=== PATIENT | male | born 2000 | race Caucasian/White ===

== ENCOUNTER 2020-03-17 13:49 | Outpatient (REF) | payer MEDICAID, SELFPAY | END 2020-03-17 13:50 | disposition home or self-care (01) | LOC: HO.LAB 13:49 | PROVIDERS: Visit Provider Internal Medicine | DX: Z20.828 Contact with and (suspected) exposure to other viral communicable diseases (principal) | CPT/HCPCS: C9803; U0003 ==

== ENCOUNTER 2021-04-23 17:47 | Emergency (ER) | payer MEDICAID, SELFPAY ==
--- NOTE | ~2021-04-23 | CT_ITS ---
EXAMINATION: CT ABDOMEN AND PELVIS WITH CONTRAST CLINICAL INFORMATION: Fever, vomiting and diarrhea. COMPARISON: None. TECHNIQUE: Multidetector volumetric images were obtained from the superior aspect of the liver through the pubic symphysis following administration 85 mL of Omnipaque 350 intravenous contrast. Sagittal and coronal reformatted images were obtained on the technologist's workstation. Oral contrast: No This CT examination was performed using dose optimization techniques as appropriate, variously including the following: *Automated exposure control *Adjustment of mA and/or kV according to patient size (this includes techniques or standardized protocols for targeted exams where dose is matched to indication/reason for exam; i.e. extremities or head) *Use of iterative reconstruction technique DLP: 414 mGy-cm FINDINGS: LUNG BASES: The visualized lung bases are unremarkable. LIVER, GALLBLADDER, AND BILIARY TREE: The liver is normal in size, shape, and attenuation. No focal hepatic lesion or biliary ductal dilatation is present. The gallbladder is unremarkable with no evidence of radiopaque gallstones, gallbladder wall thickening, or obvious pericholecystic inflammatory changes. PANCREAS: Unremarkable. SPLEEN: Unremarkable. ADRENAL GLANDS: Unremarkable. KIDNEYS AND URETERS: The kidneys are normal in size, shape, and attenuation. No hydronephrosis, hydroureter, or calculi seen. No perinephric stranding. BLADDER: Unremarkable. GASTROINTESTINAL TRACT: The stomach and the small bowel are nondilated. There are however a few prominent fluid-filled loops of small bowel in the lower abdomen with associated stranding of the root of the mesentery (3:51) and prominent mesenteric lymph nodes, raising the possibility of gastroenteritis. No pericolic inflammatory changes or bowel obstruction. Normal appendix. ABDOMINAL WALL: No significant hernia is appreciated. LYMPH NODES: As above. There is haziness of the root of the mesentery (6:39) with multiple prominent associated lymph nodes. VASCULAR: Unremarkable. PELVIC VISCERA: Unremarkable. OSSEOUS STRUCTURES: No acute or aggressive osseous abnormalities. CT/CT abdomen pelvis w con IMPRESSION: Fluid-filled loops of small bowel with associated mesenteric vasculature engorgement, haziness and prominent mesenteric lymph nodes raising the possibility of an infectious or inflammatory process of the small bowel such as gastroenteritis. The haziness of the mesentery is inferior to the pancreas and although acute edematous pancreatitis is felt less likely, correlation with lipase levels should be obtained. No bowel obstruction.
[2021-04-23 19:36] VITALS: BP 129/75; PULSE 116; RESP 20; TEMP 37.6; O2SAT 97; BMI 24.7
[2021-04-23 19:51] LABS: MANUAL DIFF FLAG NO
[2021-04-23 19:52] LABS: Basophils Percent Auto 0.2 % (0-2); Eosinophils Absolute Auto 0.1 X10*3/uL (0.0-0.4); Eosinophils Percent Auto 0.4 % (0-4); Hematocrit 46.4 % (42.0-52.0); Hemoglobin 15.7 g/dl (14.0-18.0); Imm Gran Abs Auto 0.08 X10*3/uL (0.00-0.03); Imm Gran Pct Auto 0.6 % (0.0-0.4); Lymphocytes Absolute Auto 0.9 X10*3/uL (1.2-4.9); Mean Corpuscular HGB Conc 33.8 g/dl (31.0-36.0); Mean Corpuscular Hemoglobin 29.9 pg (27.0-33.0); Mean Corpuscular Volume 88.4 fL (80.0-98.0); Mean Platelet Volume 8.7 fL (9.4-12.4); Monocytes Absolute Auto 0.9 X10*3/uL (0.1-1.2); Monocytes Percent Auto 6.1 % (2-11); Neutrophils Absolute Auto 12.6 x10*3/uL (2.0-8.3); Neutrophils Percent Auto 86.7 % (45-73); Platelet Count 254 X10*3/uL (160-400); Red Blood Count 5.25 X10*6/uL (4.60-5.80); Red Cell Distribution Width 12.6 % (11.0-16.0); White Blood Count 14.5 X10*3/uL (4.8-10.8)
[2021-04-23 20:09] LABS: COVID-19 Test Negative (Negative)
[2021-04-23 20:10] LABS: Alanine Aminotransferase 68 U/L (0-40); Albumin Level 4.7 g/dL (3.5-5.0); Alkaline Phosphatase 66 U/L (39-117); Anion Gap 13 (12-20); Aspartate Amino Transferase 25 U/L (5-37); Bilirubin Direct 0.3 mg/dL (0.0-0.5); Bilirubin Total 0.9 mg/dL (0.0-1.0); Blood Urea Nitrogen 10 mg/dL (9-16); Carbon Dioxide 24 mmol/L (22-29); Chloride 104 mmol/L (96-108); Creatinine Clr Calc Pharmacy 146.1; Estimated Glomerular Filt Rate > 60; Glucose Random 105 mg/dL (60-115); Lipase 31 U/L (8-78); Sodium 137 mmol/L (135-145); Total Protein 7.7 g/dL (6.5-8.0)
[2021-04-23 23:17] VITALS: BP 117/61; PULSE 95; RESP 16; TEMP 38.4; O2SAT 98
[2021-04-23] MEDS: Acetaminophen 325 MG TABLET 975 MG PO (23:20)
--- NOTE | 2021-04-23 23:46 | ED_ITS ---
HPI - Nausea/Vomiting/Diarrhea General Chief complaint: Nausea/Vomiting/Diarrhea Stated complaint: abd pain nausea dizzy Time Seen by Provider: 04/23/21 23:09 Source: patient Mode of arrival: ambulatory Limitations: no limitations History of Present Illness HPI Narrative: 20-year-old male presents for diarrhea, nausea, and vomiting this started midnight last night. Patient had multiple episodes of diarrhea, states he had more than 10 episodes of diarrhea. He was nauseous, but could drink some water. He vomited 3 times today. He had epigastric pain with the vomiting. No dark, tarry, or bloody stool. No abdominal pain now Patient states he ate a Lava cake from [employer] that smelled bad yesterday. He has not had any recent antibiotic use, no bad Yates, no travel or recent camping. does not drink alcohol, but does smoke marijuana daily. No belly surgeries. MD elicited complaint: vomiting and diarrhea Onset (ago): day(s) (1) Description of vomiting: food contents Description of diarrhea: loose Associated nausea: Yes Associated abdominal pain: No Related Data Previous Rx's Medication Instructions Recorded ondansetron 4 mg disintegrating 4 mg PO Q8H #9 tab 04/23/21 tablet Allergies Allergy/AdvReac Type Severity Reaction Status Date / Time No Known Allergies Allergy Verified 04/23/21 19:42 Review of Systems Constitutional: Constitutional: Denies body ache(s), Denies chills, Denies fatigue, Denies fever(s), Denies headache(s), Denies malaise and Denies weakness Eyes: Eyes: Denies diplopia ENT: Denies vertigo, Denies dizziness, Denies otalgia, Denies headache(s), Denies mouth pain, Denies post nasal drip, Denies sinus pain, Denies sinus pressure, Denies sore throat and Denies throat swelling Cardiovascular: Cardiovascular: Denies chest pain, Denies syncope, Denies leg edema, Denies lightheadedness, Denies Loss of Consciousness, Denies palpitations and Denies dyspnea Respiratory: Respiratory: Denies chest congestion, Denies cough and Denies dyspnea Gastrointestinal: Gastrointestinal: Denies abdominal pain, Denies melena, Denies hematochezia, Denies tenesmus, Denies change in stool character, Denies coffee ground emesis, Reports diarrhea, Reports nausea, Reports vomiting and Denies hematemesis Genitourinary: Genitourinary: Reports no additional male genitourinary complaints Musculoskeletal: Musculoskeletal: Reports no additional musculoskeletal complaints Neurologic: Denies confusion, Denies vertigo, Denies dizziness, Denies syncope, Denies headache(s) and Denies weakness Psychiatric: Psychiatric: Denies anxiety, Denies confusion and Denies depression Endocrine: Endocrine: Denies fatigue and Denies palpitations Allergic/Immunologic: Allergic/Immunologic: Denies throat swelling PMFSH Past Medical History Medical History (Updated 04/23/21 @ 23:09 by ZAKI Lopez) No known health problems Social History Social History Advance Directives: No Advance Directives Information Provided: Yes Physical Exam Vital Signs: Vital Signs: Last Vital Signs Temp 98.8 F 04/24/21 00:55 Pulse 95 04/23/21 23:17 Resp 16 04/23/21 23:17 BP 117/61 04/23/21 23:17 Pulse Ox 98 04/23/21 23:17 BMI result Body Mass Index 24.7 Const: General: No confusion Nutritional Appearance: well nourished Orientation/consciousness: No confusion Limitations: no limitations HENMT: Head: Yes normal to inspection, Yes normocephalic and Yes atraumatic Ears: hearing grossly normal bilaterally, external ears normal, TM's normal bilaterally and EAC's normal General nose exam: Normal external nose present Face and sinus: Yes normal facial exam and Yes sinuses nontender Mouth: Normal oral and palatal mucosa present Throat: Yes posterior oropharynx normal Eyes: Conjunctivae: conjunctivae normal Pupils: Equal, round and reactive pupils present EOM: EOMs intact bilaterally Neck: Neck: Yes full ROM, Yes no lymphadenopathy and Yes supple Resp: Effort & Inspection: normal respiratory effort and able to speak in complete sentences Auscultation: clear to auscultation bilaterally, no crackles, no rales, no rhonchi and no wheezes Cardio: Rate: regular rate Rhythm: regular rhythm Heart sounds: S1 normal heart sound present and S2 normal heart sound present GI: Inspection: Yes normal to inspection Palpation (GI): Soft to palpation, nontender, no guarding and not rigid Percussion: Yes normal to percussion Auscultation: normal bowel sounds Skin: General skin exam: no rashes or lesions noted Neuro: General: No confusion Cranial nerves: Yes Equal, round and reactive pupils present Extrem: General: Yes normal to inspection and Yes full ROM Psych: Appearance: grossly normal Affect: normal affect Attitude: cooperative Thought process: Normal thought process present Course Course Course Narrative: 20-year-old male presents for multiple episodes of diarrhea with some nausea and vomiting, is found to have a white blood cell count of 14.5, and is febrile. Lipase is normal On exam, patient has a benign abdominal exam, but will do abdominal CT to rule out colitis. Reevaluation(s) Reevaluation #1: CT/CT abdomen pelvis w con IMPRESSION: Fluid-filled loops of small bowel with associated mesenteric vasculature engorgement, haziness and prominent mesenteric lymph nodes raising the possibility of an infectious or inflammatory process of the small bowel such as gastroenteritis. ? The haziness of the mesentery is inferior to the pancreas and although acute edematous pancreatitis is felt less likely, correlation with lipase levels should be obtained. ? No bowel obstruction. Patient is feeling better and is now afebrile at 98.8. Counseled patient to drink plenty of fluids, keep up the Tylenol, come back if he has continuing vomiting or diarrhea, or abdominal pain MDM - Nausea/Vomiting/Diarrhea Lab Data Result diagrams: 04/23/21 19:43 04/23/21 19:43 Labs: Lab Results 04/23/21 04/23/21 04/23/21 Range/Units 19:43 19:43 19:43 WBC 14.5 H (4.8-10.8) X10*3/uL RBC 5.25 (4.60-5.80) X10*6/uL Hgb 15.7 (14.0-18.0) g/dl Hct 46.4 (42.0-52.0) % MCV 88.4 (80.0-98.0) fL MCH 29.9 (27.0-33.0) pg MCHC 33.8 (31.0-36.0) g/dl RDW 12.6 (11.0-16.0) % Plt Count 254 (160-400) X10*3/uL MPV 8.7 L (9.4-12.4) fL Immature Gran % (Auto) 0.6 H (0.0-0.4) % Neut % (Auto) 86.7 H (45-73) % Lymph % (Auto) 6.0 L (20-40) % [place] % (Auto) 6.1 (2-11) % Eos % (Auto) 0.4 (0-4) % Baso % (Auto) 0.2 (0-2) % Lymph # (Auto) 0.9 L (1.2-4.9) X10*3/uL [place] # (Auto) 0.9 (0.1-1.2) X10*3/uL Eos # (Auto) 0.1 (0.0-0.4) X10*3/uL Baso # (Auto) 0.0 (0.0-0.2) X10*3/uL Abs Immat Gran (auto) 0.08 H (0.00-0.03) X10*3/uL Absolute Neuts (auto) 12.6 H (2.0-8.3) x10*3/uL Absolute Nucleated RBC 0.000 (0.0-0.012) X10*3/uL Nucleated RBC % (auto) 0.0 (0.0-0.2) /100WBC Sodium 137 (135-145) mmol/L Potassium 4.0 (3.3-5.1) mmol/L Chloride 104 (96-108) mmol/L Carbon Dioxide 24 (22-29) mmol/L Anion Gap 13 (12-20) BUN 10 (9-16) mg/dL Creatinine 0.78 (0.5-1.4) mg/dL Estim Creat Clear Calc 146.1 Estimated GFR > 60 Random Glucose 105 (60-115) mg/dL Calcium 10.0 (8.4-10.2) mg/dL Total Bilirubin 0.9 (0.0-1.0) mg/dL Direct Bilirubin 0.3 (0.0-0.5) mg/dL AST 25 (5-37) U/L ALT 68 H (0-40) U/L Alkaline Phosphatase 66 (39-117) U/L Total Protein 7.7 (6.5-8.0) g/dL Albumin 4.7 (3.5-5.0) g/dL Lipase 31 (8-78) U/L COVID-19 ([facility]) Negative (Negative) COVID-19 Clin Com See Note Discharge Plan Discharge Clinical Impression: Gastroenteritis Patient Disposition: Home, Self-Care Instructions: Acute Nausea and Vomiting (ED) Additional Instructions: Your COVID test is negative today. Your abdominal CT shows a gastroenteritis, which is a fancy name for a stomach bug.PLease go home, rest, drink plenty of fluids, take Tylenol for headache, take ondansetron for nausea. Do not take ondansetron more than every 8 hours. I want you to drink 2-3 L of water a day for the next 2-3 days. Review of fevers, belly pain, more vomiting or diarrhea, please return to emergency room. Prescriptions: New ondansetron 4 mg tablet,disintegrating 4 mg PO Q8H Qty: 9 RF: 0
[2021-04-24] MEDS: iohexoL 350 MG/ML 100 ML INFUS..BTL IV (00:24)
[2021-04-24 00:55] VITALS: TEMP 37.1
== END 2021-04-24 01:03 | disposition home or self-care (01) ==
PROVIDERS: Emergency Provider Emergency Medicine
DX: K52.9 Noninfective gastroenteritis and colitis, unspecified (principal); F12.90 Cannabis use, unspecified, uncomplicated; Z20.822 Contact with and (suspected) exposure to COVID-19
CPT/HCPCS: 36415; 74177; 80048; 80076; 83690; 85025; 87635; 96360; 99284; Q9967

== ENCOUNTER 2021-12-20 12:43 | Emergency (ER) | payer MEDICAID, SELFPAY ==
[2021-12-20 13:03] VITALS: BP 136/69; PULSE 88; RESP 16; TEMP 36.4; O2SAT 98; BMI 26.4
--- NOTE | 2021-12-20 15:02 | ED.EXTPRO ---
HPI - Extremity Problem General Chief complaint: Extremity Problem Stated complaint: swollen finger Time Seen by Provider: 12/20/21 15:02 Source: patient Mode of arrival: ambulatory Limitations: no limitations History of Present Illness HPI Narrative: 21 yo male presenting to the ER for evaluation of left middle fingertip swelling since yesterday. He reports the lateral aspect of the finger nail and tip of the finger are red, swollen and painful. No recent trauma or finger nail trimming. No limitation in his ROM of the finger. No discharge from the area. No weakness, numbness or tingling. MD Complaint: extremity pain Onset (ago): day(s) (1) Pain Consistency: constant Location: left and other (middle finger) Severity scale (1-10): 5 Quality: dull Radiation: distal Relieving factors: nothing Exacerbating factors: palpation Associated symptoms: denies other symptoms Related Data Previous Rx's Medication Instructions Recorded ondansetron 4 mg disintegrating 4 mg PO Q8H #9 tabs 04/23/21 tablet cephalexin 500 mg capsule 500 mg PO Q6H 7 days #28 caps 12/20/21 Allergies Allergy/AdvReac Type Severity Reaction Status Date / Time No Known Allergies Allergy Verified 04/23/21 19:42 Review of Systems Review of Systems: Constitutional: No Fever, No Chills Gastrointestinal: No Nausea, No Vomiting Musculoskeletal: + joint pain, No Myalgias Skin: + Skin Lesions, No rash Neuro: No Weakness, No Numbness Psych: + Anxiety/Panic Heme/Lymph: No Bruising, No Lymphadenopathy PMFSH Past Medical History Medical History (Updated 12/20/21 @ 15:20 by ZAKI Miner) No known health problems Social History Social History Advance Directives: No Advance Directives Information Provided: Yes Physical Exam Vital Signs: Vital Signs: Last Vital Signs Temp 98.4 F 12/20/21 15:27 Pulse 76 12/20/21 15:27 Resp 16 12/20/21 15:27 BP 118/68 12/20/21 15:27 Pulse Ox 100 12/20/21 15:27 O2 Del Method 12/20/21 15:27 BMI result Body Mass Index 26.4 Appearance: Alert. Oriented X3. No acute distress. HEENT: normal inspection CVS: Normal heart rate and rhythm. Pulses normal. Respiratory: No respiratory distress. Skin: Skin warm and dry. Normal skin color. Normal skin turgor. No rashes. Extremities: left middle fingertip wtih erythema, warmth, and tenderness of the lateral nail bed without area of fluctuance, no drainage. normal ROM of all digits. normal sensation. Neuro: Oriented X 3. Grossly normal, nonfocal Course Course Course Narrative: 21 yo male presenting to the ER with left middle finger pain and swelling. Exam is consistent with early paronychia, will treat with warm soaks and abx. Pt counseled on return precautions Discharge Plan Discharge Clinical Impression: Paronychia of finger Patient Disposition: Home, Self-Care Instructions: Paronychia (ED) Additional Instructions: Use warm soap water soaks to your finger several times per day Take the prescribed antibiotic as directed, complete the entire course If you develop new or worsening symptoms call 911 or come back to the ER for further evaluation. Prescriptions: New cephalexin 500 mg capsule 500 mg PO Q6H 7 Days Qty: 28 0RF No Action ondansetron 4 mg tablet,disintegrating 4 mg PO Q8H Qty: 9 0RF Interventions: ED Discharge Assessment Last Done: 12/20/21 15:33 Discharge Date/Time: 12/20/21 15:34
[2021-12-20 15:27] VITALS: BP 118/68; PULSE 76; RESP 16; TEMP 36.9; O2SAT 100
== END 2021-12-20 15:34 | disposition home or self-care (01) ==
PROVIDERS: Emergency Provider Emergency Medicine
DX: L03.012 Cellulitis of left finger (principal); Z79.899 Other long term (current) drug therapy
CPT/HCPCS: 99282; 99283

== ENCOUNTER 2023-02-15 10:00 | Outpatient (REF) | payer MEDICAID, SELFPAY ==
[2023-02-15 10:59] LABS: Basophils Absolute Auto 0.1 X10*3/uL (0.0-0.2); Basophils Percent Auto 0.7 % (0-2); Eosinophils Absolute Auto 0.4 X10*3/uL (0.0-0.4); Eosinophils Percent Auto 4.8 % (0-4); Hematocrit 43.7 % (42.0-52.0); Hemoglobin 14.6 g/dl (14.0-18.0); Imm Gran Abs Auto 0.03 X10*3/uL (0.00-0.03); Imm Gran Pct Auto 0.4 % (0.0-0.4); Lymphocytes Percent Auto 26.4 % (20-40); MANUAL DIFF FLAG SCAN; Mean Corpuscular HGB Conc 33.4 g/dl (31.0-36.0); Mean Corpuscular Hemoglobin 29.4 pg (27.0-33.0); Mean Corpuscular Volume 88.1 fL (80.0-98.0); Mean Platelet Volume 10.2 fL (9.4-12.4); Monocytes Absolute Auto 0.4 X10*3/uL (0.1-1.2); Monocytes Percent Auto 5.5 % (2-11); Neutrophils Absolute Auto 4.6 x10*3/uL (2.0-8.3); Neutrophils Percent Auto 62.2 % (45-73); PLT CLUMP 1; Red Blood Count 4.96 X10*6/uL (4.60-5.80); Red Cell Distribution Width 12.4 % (11.0-16.0); SCAN SMEAR FLAG 1
[2023-02-15 11:00] LABS: White Blood Count 7.5 X10*3/uL (4.8-10.8)
[2023-02-15 11:13] LABS: Alanine Aminotransferase 81 U/L (0-40); Albumin Level 4.8 g/dL (3.5-5.0); Alkaline Phosphatase 73 U/L (39-117); Anion Gap 15 (12-20); Aspartate Amino Transferase 34 U/L (5-37); Bilirubin Total 0.2 mg/dL (0.0-1.0); Blood Urea Nitrogen 15 mg/dL (9-16); Calcium 10.6 mg/dL (8.4-10.2); Carbon Dioxide 24 mmol/L (22-29); Chloride 104 mmol/L (96-108); Estimated Glomerular Filt Rate > 60; Glucose Random 98 mg/dL (60-115); Sodium 138 mmol/L (135-145); Total Protein 8.6 g/dL (6.5-8.0)
[2023-02-15 11:35] LABS: Platelet Count 247 X10*3/uL (160-400)
[2023-02-15 11:36] LABS: SLIDE REVIEW VERIFIED
== END 2023-02-15 10:01 | disposition home or self-care (01) ==
LOC: HO.10HDL 10:00
PROVIDERS: Visit Provider Internal Medicine
DX: Z00.00 Encounter for general adult medical examination without abnormal findings (principal); F12.10 Cannabis abuse, uncomplicated; H53.8 Other visual disturbances
CPT/HCPCS: 36415; 80053; 85025

== ENCOUNTER 2024-08-02 03:41 | Emergency (ER) | payer MEDICAID, SELFPAY ==
[2024-08-02 03:43] VITALS: BP 140/96; PULSE 130; RESP 20; TEMP 37.5; O2SAT 98; BMI 24.0
[2024-08-02 03:57] LABS: IDNOW Serial# 6674DD1D; Strep A Nucleic Acid Positive (Negative)
[2024-08-02 04:32] LABS: Influenza A PCR NEGATIVE (Negative); Influenza B PCR NEGATIVE (Negative); Resp Syncy Virus RNA Qual PCR NEGATIVE (Negative); SARS COV2 PCR INHOUSE NEGATIVE (Negative)
[2024-08-02 06:11] VITALS: BP 124/67; PULSE 90; RESP 16; TEMP 37.4; O2SAT 99
--- NOTE | 2024-08-02 07:21 | ED.URI ---
HPI - URI/Sore Throat General Chief Complaint: Upper Respiratory Symptoms Stated Complaint: sore throat/hurts to swallow Time Seen by Provider: 08/02/24 07:11 Source: patient Mode of arrival: ambulatory Limitations: no limitations Related Data Previous Rx's ?Medication ?Instructions ?Recorded ondansetron 4 mg disintegrating 4 mg PO Q8H #9 tabs 04/23/21 tablet cephalexin 500 mg capsule 500 mg PO Q6H 7 days #28 caps 12/20/21 amoxicillin 500 mg capsule 500 mg PO BID #20 caps 08/02/24 lidocaine HCl 2 % mucosal solution 5 ml mucous membrane QID PRN pain 08/02/24 #120 mL Allergies Allergy/AdvReac Type Severity Reaction Status Date / Time No Known Allergies Allergy Verified 08/02/24 03:44 [facility] Past Medical History Medical History (Updated 08/02/24 @ 07:22 by Lucille Monreal NP) No known health problems Social History Social History Advance Directives: No Advance Directives Information Provided: Yes Do you have a plan to hurt others: No Plan Physical Exam Vital Signs: Vital Signs: Last Vital Signs Temp 99.3 F 08/02/24 06:11 Pulse 90 08/02/24 06:11 Resp 16 08/02/24 06:11 BP 124/67 08/02/24 06:11 Pulse Ox 99 08/02/24 06:11 O2 Del Method Room Air 08/02/24 06:11 BMI result Body Mass Index 24.0 Medical Decision Making Lab Data Labs: Lab Results 08/02/24 Range/Units 03:48 Influenza Type A (PCR) NEGATIVE (Negative) Influenza Type B (PCR) NEGATIVE (Negative) RSV RNA Qual (PCR) NEGATIVE (Negative) SARS-CoV-2 RNA (RT-PCR) NEGATIVE (Negative) S. pyogenes GrpA LEXIE Positive A (Negative) Discharge Plan Discharge Clinical Impression: Pharyngitis Patient Disposition: Home, Self-Care Instructions: Pharyngitis (ED) Additional Instructions: Motrin or tylenol for pain as needed Increase fluids, rest Return for diff swallowing, chest pain, shortness of breath, fever which does not respond to motrin or tylenol Prescriptions: New amoxicillin 500 mg capsule 500 mg PO BID Qty: 20 0RF lidocaine HCl 2 % solution 5 ml mucous membrane QID PRN (Reason: pain) Qty: 120 0RF No Action ondansetron 4 mg tablet,disintegrating 4 mg PO Q8H Qty: 9 0RF cephalexin 500 mg capsule 500 mg PO Q6H 7 Days Qty: 28 0RF Referrals: Physician,Unknown J [Primary Care Provider] - 1 week Stand Alone Forms: Work/School Release Print Language: Polish
[2024-08-02 07:31] VITALS: BP 124/76; PULSE 90; RESP 18; TEMP 36.9; O2SAT 96
--- NOTE | 2024-08-02 07:44 | ED.URI ---
HPI - URI/Sore Throat General Chief Complaint: Upper Respiratory Symptoms Stated Complaint: sore throat/hurts to swallow Time Seen by Provider: 08/02/24 07:11 Source: patient Mode of arrival: ambulatory Limitations: no limitations History of Present Illness ED Provider: Amanda Del Castillo PA-C HPI Narrative: Patient comes to urgent Care today for evaluation of sore throat that started approximately 1 week ago. He did seek for pain relief at the local [facility] pharmacy the pharmacist recommended that he do cough drops for it. Patient states he has been doing the transiently but still no improvement. He has had some painful swallowing but no drooling or choking he denies any coughing or fevers or chills or decrease in appetite. When he drinks cold water it makes it feel best. He does not feel nauseous he has no vomiting or diarrhea he is without any body aches joint pain or rashes. Denies any dizziness or headaches or ear pain. He has taken Tylenol PRN and it helps. Denies any known sick contacts and no difficulty with opening of his mouth MD elicited complaint: sore throat Exacerbating factors: swallowing Related Data Previous Rx's ?Medication ?Instructions ?Recorded ondansetron 4 mg disintegrating 4 mg PO Q8H #9 tabs 04/23/21 tablet cephalexin 500 mg capsule 500 mg PO Q6H 7 days #28 caps 12/20/21 amoxicillin 500 mg capsule 500 mg PO BID #20 caps 08/02/24 lidocaine HCl 2 % mucosal solution 5 ml mucous membrane QID PRN pain 08/02/24 #120 mL Allergies Allergy/AdvReac Type Severity Reaction Status Date / Time No Known Allergies Allergy Verified 08/02/24 03:44 Review of Systems Review of Systems: Yes all other systems are reviewed and are negative [facility] Past Medical History Attestation statement: The following information was validated with the patient. [facility] Narrative: Reports marijuana use only denies any EtOH use or other illicit drugs non tobacco user no other significant past medical history no regular medications no significant family history Source: nursing notes reviewed Medical History No known health problems Social History Social History (Updated 08/02/24 @ 07:46 by Amanda Del Castillo PA-C) Substance Use Type: Marijuana Physical Exam Vital Signs: Vital Signs: Last Vital Signs Temp 98.4 F 08/02/24 07:31 Pulse 90 08/02/24 07:31 Resp 18 08/02/24 07:31 BP 124/76 08/02/24 07:31 Pulse Ox 96 08/02/24 07:31 O2 Del Method Room Air 08/02/24 07:31 BMI result Body Mass Index 24.0 No trismus Const: General: cooperative, healthy appearing, comfortable, no acute distress, well developed, alert, awake, Physically active and well groomed Nutritional Appearance: average body habitus and well nourished Orientation/consciousness: patient oriented x3 Limitations: no limitations HEENT: Head: Yes normocephalic and Yes atraumatic Ears: hearing grossly normal bilaterally and mastoids normal General nose exam: Normal external nose present and Normal nares present Face and sinus: Yes normal facial exam and Yes sinuses nontender Mouth: Abnormal oral and palatal mucosa present (Small shallow ulcer approximately 2 mm in size on the left middle tonsil ) Teeth and gingiva: dentition normal Throat: Yes uvula midline, Yes abnormal tonsil and Yes other (Posterior pharynx is erythematous with both tonsils mildly edematous) Eyes: General: appearance normal, both eyes and all related structures Conjunctivae: conjunctivae normal Corneas: corneas normal EOM: EOMs intact bilaterally Neck: Neck: Yes full ROM Thyroid: Thyroid normal Lymphatic: no lymphedema noted Chest: Chest palpation & inspection: normal inspection of the chest Resp: Effort & Inspection: normal respiratory effort and able to speak in complete sentences Auscultation: clear to auscultation bilaterally Cardio: Rate: regular rate Rhythm: regular rhythm Heart sounds: S1 normal heart sound present and S2 normal heart sound present GI: Inspection: Yes normal to inspection Rectal Exam - Male: Yes deferred Skin: General skin exam: no rashes or lesions noted Neuro: General: patient oriented x3 Medical Decision Making Medical Decision Making MDM Narrative: The patient was evaluated for sore throat and diagnosed with streptococcal pharyngitis (strep throat) without complications such as middle or external ear infections peritonsillar abscess or retropharyngeal abscess. Lungs clear chest x-ray not indicated today negative to COVID and flu. The diagnosis was based on clinical history, symptoms, and/or confirmatory testing Treatment discussed and as detailed in plan. Supportive care with hydration, acetaminophen or ibuprofen for pain/fever, and saltwater gargles recommended.? Potential complications such as rheumatic fever, abscess, or glomerulonephritis were reviewed, along with red flags for seeking care: worsening symptoms after 48?72 hours (PCP/urgent care), difficulty breathing/swallowing, or severe neck swelling (ED). The patient and/or family member demonstrated understanding of the plan, agreed, and was discharged home in stable condition. Differential Diagnosis Differential Diagnoses: The differential diagnosis associated with the presentation includes (See MDM) Lab Data [facility] Lab Attestation statement: I reviewed the patient's lab results. Labs: Lab Results 08/02/24 Range/Units 03:48 Influenza Type A (PCR) NEGATIVE (Negative) Influenza Type B (PCR) NEGATIVE (Negative) RSV RNA Qual (PCR) NEGATIVE (Negative) SARS-CoV-2 RNA (RT-PCR) NEGATIVE (Negative) S. pyogenes GrpA LEXIE Positive A (Negative) Tests considered The following testing was considered but not selected: CXR and soft tissue neck, no respiratory distress or drooling no cough- see MDM Prescription Management I considered prescription management with: Pain Medication and Antibiotic Discharge Plan Discharge Clinical Impression: Pharyngitis Patient Disposition: Home, Self-Care Instructions: Pharyngitis (ED) Additional Instructions: Motrin or tylenol for pain as needed Increase fluids, rest Return for diff swallowing, chest pain, shortness of breath, fever which does not respond to motrin or tylenol Prescriptions: New amoxicillin 500 mg capsule 500 mg PO BID Qty: 20 0RF lidocaine HCl 2 % solution 5 ml mucous membrane QID PRN (Reason: pain) Qty: 120 0RF No Action ondansetron 4 mg tablet,disintegrating 4 mg PO Q8H Qty: 9 0RF cephalexin 500 mg capsule 500 mg PO Q6H 7 Days Qty: 28 0RF Referrals: Physician,Unknown J [Primary Care Provider] - 1 week Stand Alone Forms: Work/School Release Print Language: Macedonian
== END 2024-08-02 07:51 | disposition home or self-care (01) ==
PROVIDERS: Emergency Provider Internal Medicine
DX: J02.9 Acute pharyngitis, unspecified (principal); R13.10 Dysphagia, unspecified; Z03.818 Encounter for observation for suspected exposure to other biological agents ruled out
CPT/HCPCS: 0241U; 87651; 99283

== ENCOUNTER 2025-03-21 11:15 | Emergency (ER) | payer MEDICAID, SELFPAY ==
[2025-03-21 11:29] VITALS: BP 141/73; PULSE 90; RESP 18; TEMP 36.9; O2SAT 98; BMI 27.3
--- NOTE | 2025-03-21 11:30 | ED_ITS ---
HPI - URI/Sore Throat General Chief Complaint: Upper Respiratory Symptoms Stated Complaint: Headache Time Seen by Provider: 03/21/25 12:06 Source: patient Mode of arrival: ambulatory Limitations: no limitations History of Present Illness ED Provider: Lucille Monreal APRN HPI Narrative: 24 yo male with history of ADHD here with headache, nasal congestion, cough, sore throat, malaise, chills since yesterday. No recent travel. No sick contact. No shortness of breath, chest pain, neck pain/stiffness, fevers, vomiting, diarrhea, abdominal pain, skin rash. Related Data Previous Rx's ?Medication ?Instructions ?Recorded ondansetron 4 mg disintegrating 4 mg PO Q8H #9 tabs tablet cephalexin 500 mg capsule 500 mg PO Q6H 7 days #28 cap s 12/20/21 amoxicillin 500 mg capsule 500 mg PO BID #20 caps 07/06 01/29 lidocaine HCl 2 % mucosal solution 5 ml mucous membran e QID PRN pain 08/02/24 #120 mL acetaminophen 325 mg capsule 650 mg (2 x 325 mg) PO Q6 H PRN 03/21/25 fever or pain #60 caps ibuprofen 600 mg tablet 600 mg PO Q6H PRN fever or p ain 03/21/25 #30 tabs Allergies Allergy/AdvReac Type Severity Reaction Status Date / Time No Known Allergies Allergy Verified 03/21/25 11:31 Review of Systems Review of Systems: Yes all other systems are reviewed and are negative Constitutional: Constitutional: Reports no additional constitutional complaints, Denies body ache(s), Reports chills, Denies fever(s), Reports headache(s), Reports malaise and Denies weakness Eyes: Eyes: Reports no additional eye complaints and Denies change in vision ENT: Reports system reviewed and no additional complaints, except as documented, Denies dizziness, Reports headache(s), Reports nasal congestion, Denies nasal discharge and Denies neck pain Cardiovascular: Cardiovascular: Reports no additional cardiovascular complaints, Denies chest pain, Denies leg edema and Denies dyspnea Respiratory: Respiratory: Reports no additional respiratory complaints, Reports cough and Denies dyspnea Gastrointestinal: Gastrointestinal: Reports no additional gastrointestinal complaints, Denies abdominal pain, Denies diarrhea, Denies nausea and Denies vomiting Genitourinary: Genitourinary: Denies urinary incontinence Musculoskeletal: Musculoskeletal: Reports no additional musculoskeletal complaints, Denies back pain, Denies arthralgias, Denies joint swelling, Denies neck pain, Denies numbness and Denies tingling Integumentary/Breasts: Skin/Breast: Reports system reviewed and no additional complaints, except as docu and Denies rash Neurologic: Reports system reviewed and no additional complaints, except as documented, Denies Abnormal speech present, Denies dizziness, Reports headache(s), Denies numbness, Denies tingling and Denies weakness PMFSH Past Medical History Attestation statement: The following information was validated with the patient. Source: old records reviewed and nursing notes reviewed Medical History No known health problems Social History Social History Substance Use Type: Marijuana Advance Directives: No Advance Directives Information Provided: Yes Physical Exam Vital Signs: Vital Signs: Last Vital Signs Temp 98.5 F 03/21/25 12:43 Pulse 90 03/21/25 12:43 Resp 18 03/21/25 12:43 BP 141/73 H 03/21/25 12:43 Pulse Ox 98 03/21/25 12:43 O2 Del Method Room Air 03/21/25 12:43 BMI result Body Mass Index 27.3 Const: General: cooperative, healthy appearing, comfortable and no acute distress Orientation/consciousness: patient oriented x3 Limitations: no limitations HEENT: Head: Yes normal to inspection Ears: hearing grossly normal bilaterally and TM's normal bilaterally General nose exam: Normal external nose present Face and sinus: Yes normal facial exam Mouth: Normal oral and palatal mucosa present Throat: Yes posterior oropharynx normal, Yes tonsils normal and Yes uvula midline Eyes: General: appearance normal, both eyes and all related structures Pupils: Equal, round and reactive pupils present Neck: Neck: Yes normal visual inspection, Yes full ROM, Yes no lymphadenopathy and Yes no meningeal signs Chest: Chest palpation & inspection: normal inspection of the chest Resp: Effort & Inspection: normal respiratory effort Auscultation: clear to auscultation bilaterally Cardio: Rate: regular rate Rhythm: regular rhythm Peripheral pulses: Peripheral pulses 2+ throughout GI: Inspection: Yes normal to inspection Palpation (GI): Soft to palpation and nontender Auscultation: normal bowel sounds Back/Spine/Pelvis: Thoracic/Lumbar Spine: thoracic and lumbar spine normal to inspection Skin: General skin exam: no rashes or lesions noted Neuro: General: patient oriented x3, no meningeal signs, no focal motor deficits and normal sensation to monofilament Cranial nerves: Yes Equal, round and reactive pupils present Cognition (Neuro): normal cognition Speech: No Abnormal speech present Gait exam (Neuro): Normal gait present Motor exam (neuro): 5/5 motor strength present throughout Extrem: General: Yes normal to inspection, Yes no calf tenderness and No edema Course Course Course Narrative: 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 Deferred additional HPI, ROS, PE to primary provider. 24 yo male with history of ADHD here with headache, nasal congestion, cough, sore throat since yesterday. Will obtain viral testing VSS Medical Decision Making Medical Decision Making MDM Narrative: 24 yo male with history of ADHD here with headache, nasal congestion, cough, sore throat, malaise, chills since yesterday. No recent travel. No sick contact. No shortness of breath, chest pain, neck pain/stiffness, fevers, vomiting, diarrhea, abdominal pain, skin rash. Exam is benign VSS Will send viral testing Differential Diagnosis Differential Diagnoses: The differential diagnosis associated with the presentation includes viral syndrome, influenza, strep pharyngitis, AOM Admission/Observation Consideration of admission/observation: Escalation of care including admission/observation considered Lab Data MDM Lab Attestation statement: I reviewed the patient's lab results. Labs: Lab Results 03/21/25 Range/Units 11:35 Influenza Type A (PCR) NEGATIVE (Negative) Influenza Type B (PCR) NEGATIVE (Negative) RSV RNA Qual (PCR) NEGATIVE (Negative) SARS-CoV-2 RNA (RT-PCR) NEGATIVE (Negative) Prescription Management I considered prescription management with: Pain Medication and Antiviral Discharge Plan Discharge Clinical Impression: Viral infection Patient Disposition: Home, Self-Care Instructions: Viral Syndrome (ED) Additional Instructions: Testing for flu, covid and rsv are negative increase fluids, rest alternate motrin/tylenol for pain or fever follow-up with your PCP for any continued symptoms Prescriptions: New ibuprofen 600 mg tablet 600 mg PO Q6H PRN (Reason: fever or pain) Qty: 30 0RF acetaminophen 325 mg capsule 650 mg PO Q6H PRN (Reason: fever or pain) Qty: 60 0RF No Action ondansetron 4 mg tablet,disintegrating 4 mg PO Q8H Qty: 9 0RF cephalexin 500 mg capsule 500 mg PO Q6H 7 Days Qty: 28 0RF amoxicillin 500 mg capsule 500 mg PO BID Qty: 20 0RF lidocaine HCl 2 % solution 5 ml mucous membrane QID PRN (Reason: pain) Qty: 120 0RF Referrals: Physician,Unknown J [Primary Care Provider, Medical] Stand Alone Forms: Work/School Release Interventions: ED Discharge Assessment Last Done: 03/21/25 12:43 Discharge Date/Time: 03/21/25 12:44 Print Language: Trin[place]
[2025-03-21 12:34] LABS: Resp Syncy Virus RNA Qual PCR NEGATIVE (Negative); SARS COV2 PCR INHOUSE NEGATIVE (Negative)
[2025-03-21 12:43] VITALS: BP 141/73; PULSE 90; RESP 18; TEMP 36.9; O2SAT 98
== END 2025-03-21 12:44 | disposition home or self-care (01) ==
PROVIDERS: Nurse Practitioner Family; Emergency Provider Emergency Medicine
DX: B34.9 Viral infection, unspecified (principal)
CPT/HCPCS: 87637; 99282; 99283